=== PATIENT | male | born 1970 | race Caucasian/White ===

== ENCOUNTER 2017-10-25 16:00 | Emergency (ER) | payer BC ==
[2017-10-25] MEDS ORDERED: predniSONE 20 MG Tab PO ONE (16:54)
[2017-10-25] MEDS ORDERED: Indomethacin 25 MG Cap PO ONE (16:54)
[2017-10-25] MEDS ORDERED: Acetaminophen/oxyCODONE 325-5 MG Tab PO ONE (16:56)
--- NOTE | 2017-10-25 16:57 | EDM.PDOC ---
ED HPI GENERAL MEDICAL PROBLEM - General Chief Complaint: Lower Extremity Injury/Pain Stated Complaint: SLIPPED OFF STEP BOTH ANKLE HURT Time Seen by Provider: 10/25/17 16:53 Source of Information: Reports: Patient History Limitations: Reports: No Limitations - History of Present Illness INITIAL COMMENTS - FREE TEXT/NARRATIVE: 47-year-old male presents to the ED with bilateral severe ankle pain. He states his ankles been somewhat painful over the last 2-3 days. This morning he slipped while taking out the garbage and landed kind of hard on his ankles. Since that 10 the pain has increased 10 fold compared to what it was. He has no known other injuries to his ankles. He has no other pain. He has no fever or chills. No past history of gout. No previous fractures in his ankles. He is at the point now where he's got a shuffling gait with pain with every step. 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 (He took some Motrin a couple of days ago 1 dose and he thinks may have helped a little bit) Bilateral Ankle Pain Score (Numeric/FACES): 9 - Related Data Allergies Allergy/AdvReac Type Severity Reaction Status Date / Time No Known Allergies Allergy Verified 10/25/17 16:53 Home Meds: Home Meds Diclofenac Sodium [Voltaren] 50 mg PO TID #30 tab.ec 10/25/17 [Rx] oxyCODONE HCl/Acetaminophen [Percocet 5-325 mg Tablet] 1 - 2 each PO Q4H PRN # 12 tablet 10/25/17 [Rx] predniSONE [Deltasone] 20 mg PO BID #12 tablet 10/25/17 [Rx] Past Medical History Endocrine/Metabolic History: Reports: Obesity/BMI 30+ Social & Family History - Living Situation & Occupation Living situation: Reports: Occupation: Employed Review of Systems - Review of Systems Review Of Systems: See Below Constitutional: Reports: No Symptoms Eyes: Reports: No Symptoms Ears: Reports: No Symptoms Nose: Reports: No Symptoms Mouth/Throat: Reports: No Symptoms Respiratory: Reports: No Symptoms Cardiovascular: Reports: No Symptoms GI/Abdominal: Reports: No Symptoms Genitourinary: Reports: No Symptoms Musculoskeletal: Reports: Other (Bilateral severe ankle pain at the time of) Skin: Reports: No Symptoms ( evaluation.) Neurological: Reports: No Symptoms Psychiatric: Reports: No Symptoms ED EXAM, GENERAL - Physical Exam Exam: See Below Exam Limited By: No Limitations General Appearance: Alert, WD/WN, Mild Distress Respiratory/Chest: No Respiratory Distress, Lungs Clear, Normal Breath Sounds Cardiovascular: Normal Peripheral Pulses, Regular Rate, Rhythm, No Edema, No Gallop, No Murmur Peripheral Pulses: 3+: Posterior Tibial (L), Posterior Tibial (R), Dorsalis Pedis (L), Dorsalis Pedis (R) GI/Abdominal: Normal Bowel Sounds, Soft, Non-Tender, No Organomegaly, Other ( Abdominal girth limits ability to palpate solid organs) Back Exam: Normal Inspection, Full Range of Motion. No: CVA Tenderness (L), CVA Tenderness (R) Extremities: Other (Examination was limited to his ankles and feet. Both feet feel quite warm to palpation. He does have pain on firm compression in the metatarsal joints and ankle joints. Most of the pain however is in the true ankle joint bilaterally. Is increased warmth in both joints. Pain with rotation of either joint.) Neurological: Alert, Oriented, CN II-XII Intact, Normal Cognition Psychiatric: Normal Affect Skin Exam: Warm, Dry, Intact, Normal Color, No Rash Course - Vital Signs Last Recorded V/S: Last Vital Signs Temp 37.0 C 10/25/17 16:25 Pulse 83 10/25/17 16:25 Resp 16 10/25/17 16:25 BP 149/110 H 10/25/17 16:25 Pulse Ox 99 10/25/17 16:25 - Orders/Labs/Meds Orders: Active Orders 24 hr Category Date Time Status Peripheral IV Care [RC] . DIRECTED Care 10/25/17 17:00 Active Colchicine [Colcrys] Med 10/25/17 16:53 Active 0.6 mg PO Q1H Ketorolac [Toradol] Med 10/25/17 17:15 Active 30 mg IVPUSH ONETIME Sodium Chloride 0.9% [Saline Flush] Med 10/25/17 17:00 Active 10 ml FLUSH ASDIRECTED PRN Peripheral IV Insertion Adult [OM.PC] Stat Oth 10/25/17 17:00 Ordered Medication Orders Colchicine (Colcrys) 0.6 mg PO Q1H VITALIY Last Admin: 10/25/17 17:28 Dose: 0.6 mg Ketorolac Tromethamine (Toradol) 30 mg IVPUSH ONETIME VITALIY Last Admin: 10/25/17 17:30 Dose: 30 mg Sodium Chloride (Saline Flush) 10 ml FLUSH ASDIRECTED PRN PRN Reason: Keep Vein Open Last Admin: 10/25/17 17:34 Dose: 10 ml Labs: Laboratory Tests 10/25/17 10/25/17 Range/Units 17:10 17:10 WBC 7.35 (4.23-9.07) K/mm3 RBC 5.41 (4.63-6.08) M/mm3 Hgb 15.4 (13.7-17.5) gm/L Hct 45.2 (40.1-51.0) % MCV 83.5 (79.0-92.2) fl MCH 28.5 (25.7-32.2) pg MCHC 34.1 (32.2-35.5) g/dl RDW Std Deviation 41.6 (35.1-43.9) fL Plt Count 307 (163-337) K/mm3 MPV 9.5 (9.4-12.3) fl Neutrophils % (Manual) 68 H (40-60) % Band Neutrophils % 1 (0-10) % Lymphocytes % (Manual) 22 (20-40) % Atypical Lymphs % 0 % Monocytes % (Manual) 6 (2-10) % Eosinophils % (Manual) 1 (0.8-7.0) % Basophils % (Manual) 2 H (0.2-1.2) Platelet Estimate Adequate Plt Morphology Comment Normal RBC Morph Comment Normal Sodium 141 (136-145) mEq/L Potassium 3.6 (3.5-5.1) mEq/L Chloride 105 (98-107) mEq/L Carbon Dioxide 27 (21-32) mEq/L Anion Gap 12.6 (5-15) BUN 11 (7-18) mg/dL Creatinine 1.1 (0.7-1.3) mg/dL Est Cr Clr Drug Dosing 101.36 mL/min Estimated GFR (MDRD) > 60 (>60) mL/min BUN/Creatinine Ratio 10.0 L (14-18) Glucose 92 (74-106) mg/dL Uric Acid 5.8 (3.5-7.2) mg/dL Calcium 8.7 (8.5-10.1) mg/dL Total Bilirubin 0.7 (0.2-1.0) mg/dL AST 21 (15-37) U/L ALT 34 (16-63) U/L Alkaline Phosphatase 70 (46-116) U/L C-Reactive Protein < 0.2 (<1.0) mg/dL Total Protein 7.6 (6.4-8.2) g/dl Albumin 4.1 (3.4-5.0) g/dl Globulin 3.5 gm/dL Albumin/Globulin Ratio 1.2 (1-2) Meds: Medications Generic Name Dose Route Start Last Admin Trade Name Freq PRN Reason Stop Dose Admin Colchicine 0.6 mg 10/25/17 16:53 10/25/17 17:28 Colcrys PO 0.6 mg Q1H VITALIY Administration Ketorolac Tromethamine 30 mg 10/25/17 17:15 10/25/17 17:30 Toradol IVPUSH 30 mg ONETIME VITALIY Administration Sodium Chloride 10 ml 10/25/17 17:00 10/25/17 17:34 Saline Flush FLUSH 10 ml ASDIRECTED PRN Administration Keep Vein Open Discontinued Medications Generic Name Dose Route Start Last Admin Trade Name Freq PRN Reason Stop Dose Admin Indomethacin 50 mg 10/25/17 16:54 10/25/17 17:30 Indocin PO 10/25/17 16:55 Not Given ONETIME ONE Oxycodone/Acetaminophen 2 tab 10/25/17 16:56 10/25/17 17:28 Percocet 325-5 Mg PO 10/25/17 16:57 2 tab ONETIME ONE Administration Prednisone 30 mg 10/25/17 16:54 10/25/17 17:28 Prednisone PO 10/25/17 16:55 30 mg ONETIME ONE Administration - Radiology Interpretation Free Text/Narrative:: 47-year-old male presents to the ED with bilateral increasing pain in his ankle joints and feet for the last 3 days. States initially the pain was intermittent. However after this morning when he slipped a bit and came down on his ankles were taken out the garbage the pain has increased 10 fold. He can barely walk at this point in time. He has no other previous injuries to his ankles. History of gout. Patient is currently on no medications. He did take some Motrin a few days ago which helped minimally. Examination reveals inflammation in both feet in the true tarsal bones as well as the ankle joint bilaterally. Clinically has acute bilateral gout. Plan saline lock. Toradol 30 mg IV. Labs will be done to include a uric acid and a CRP. Given prednisone 30 mg orally. Given Percocet 5/325 mg tablets 2 orally and colchicine 0.6 mg orally and also be repeated every hour for 3 consecutive hours. - Re-Assessments/Exams Free Text/Narrative Re-Assessment/Exam: 10/25/17 18:08 Labs are back. They reveal a normal white count at 7.35 with 60% neutrophils 1% band cells reported. Hemoglobin is 15.4 with hematocrit of 45.2. Platelet count is normal 307,000. Sodium is 141 the remainder of the electrolytes are normal. And a gap is 12.6. BUN is 11 with a creatinine of 1.1. GFR is greater than 60. Glucose is 92. Calcium was 8.7. Liver function normal. C -reactive protein less than 0.2. The uric acid is pending 10/25/17 18:24 uric acid level is 5.8 within normal limits. However often it with acute gout attack it does lower in the serum and therefore was not necessary fpredict gout activity. Patient will be discharged home to take his third dose of collapse is seen in an hour. Take Percocet 5/325 mg tablets one or 2 every 4-6 hours needed for pain relief for the next day or so. 10 tablets were provided . I will start him on Voltaren 50 mg 3 times daily for the next 10 days. Prednisone 20 mg twice daily for the next 5 days. Breakfast and supper Departure - Departure Time of Disposition: 18:25 Disposition: Home, Self-Care 01 Condition: Fair Clinical Impression: Acute gouty arthritis - Discharge Information *PRESCRIPTION DRUG MONITORING PROGRAM REVIEWED*: Not Applicable *COPY OF PRESCRIPTION DRUG MONITORING REPORT IN PATIENT KEENA: Not Applicable Prescriptions: Diclofenac Sodium [Voltaren] 50 mg PO TID #30 tab.ec oxyCODONE HCl/Acetaminophen [Percocet 5-325 mg Tablet] 1 - 2 each PO Q4H PRN # 12 tablet PRN Reason: pain relief. predniSONE [Deltasone] 20 mg PO BID #12 tablet Instructions: Low-Purine Eating Plan, Gout, [id number] Referrals: PCP,None [Primary Care Provider] - Forms: ED Department Discharge, ED Return to Work/School Form Additional Instructions: Evaluation the emergency room today in regards to gradually worsening pain in both ankles over the last 3 days. Very severe today today to the point that she could barely walk. No injury to either ankle that would create a bony injury. Streaky and examination are compatible with acute gouty arthritis developing in the tarsal joints and the true ankle joint and both legs. Lab tests revealed your uric acid level which is the culprit in terms of causing gout is upper limits of normal at this time. High-fiber I would suggest having a uric acid level checked next time you're in to see your doctor for routine checkup. Treatment was started in the ED with colchicine tablet 0.6 mg 1 every hour for 3 consecutive hours you have received 2 doses. The third dose would be due at 7: 30 tonight. He will need to start prednisone 20 mg twice daily with breakfast and supper tomorrow morning. Is to be used for 6 days. Voltaren 50 mg 3 times daily for the next 10 days. The first tablet to be taken before bed tonight with a little food. Pain medication is Percocet 5/325 mg tabs one or 2 every 4- 6 hours needed for pain relief. I suspect she will need this medicine for the next day or 2 and once the inflammation is coming under control pain will be markedly improved. He should anticipate about 70% improvement by tomorrow at this time and 9% the following day the next day nearly completely back to normal. Suggest off work tomorrow to allow you inflammation to settle down in your ankles. Return to medical care if you are not markedly improved in 72 hours time - My Orders Last 24 Hours: My Active Orders 10/25/17 16:53 Colchicine [Colcrys] 0.6 mg PO Q1H 10/25/17 17:00 Peripheral IV Care [RC] . DIRECTED Sodium Chloride 0.9% [Saline Flush] 10 ml FLUSH ASDIRECTED PRN Peripheral IV Insertion Adult [OM.PC] Stat 10/25/17 17:15 Ketorolac [Toradol] 30 mg IVPUSH ONETIME - Assessment/Plan Last 24 Hours: My Active Orders 10/25/17 16:53 Colchicine [Colcrys] 0.6 mg PO Q1H 10/25/17 17:00 Peripheral IV Care [RC] . DIRECTED Sodium Chloride 0.9% [Saline Flush] 10 ml FLUSH ASDIRECTED PRN Peripheral IV Insertion Adult [OM.PC] Stat 10/25/17 17:15 Ketorolac [Toradol] 30 mg IVPUSH ONETIME
[2017-10-25] MEDS ORDERED: Sodium Chloride 0.9% 10 ML Syringe FLUSH PRN (17:00)
[2017-10-25] MEDS ORDERED: Ketorolac 30 MG/ML SDV IVPUSH SCH (17:15)
[2017-10-25] MEDS: Colchicine 0.6 MG Tab PO SCH ×3 (17:28→18:41)
== END 2017-10-25 18:50 | disposition home or self-care (01) ==
LOC: JD.ED 16:00
DX: M10.9 Gout, unspecified (principal)
CPT/HCPCS: 36415; 80053; 84550; 85007; 85027; 86140; 96374; 99284; A9270; J1885; J7050

== ENCOUNTER 2017-11-11 12:30 | Emergency (ER) | payer BC ==
[2017-11-11] MEDS ORDERED: Albuterol 0.083% 2.5 MG/3 ML Neb Soln NEB ONE (12:59)
[2017-11-11] MEDS ORDERED: Acetaminophen/HYDROcodone 325-5 MG Tab PO ONE (12:59)
--- NOTE | 2017-11-11 13:03 | EDM.PDOC ---
ED HPI GENERAL MEDICAL PROBLEM - General Chief Complaint: Respiratory Problem Stated Complaint: COUGH AND CONGESTION AND SOB Time Seen by Provider: 11/11/17 12:49 Source of Information: Reports: Patient History Limitations: Reports: No Limitations - History of Present Illness INITIAL COMMENTS - FREE TEXT/NARRATIVE: Patient is a 47-year-old male who presents ED complaining of 2 day history of off, congestion, bodyaches, and fatigue. States yesterday he was coughing quite a bit. Had some clear mucus with intermittent faint blood present. He's had quite a bit of sinus congestion with postnasal drip. With coughing he has increasing pain to his back that radiates around to the front of his chest. Pain is improved with lying still. He is mildly short of breath with exertion at times. There is no nausea vomiting. There has been no documented fever. No anterior chest discomfort. No diaphoresis. No nausea or vomiting. No abdominal pain. 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 He has been expressing runny nose with some intermittent mild sore throat. He has no significant past medical history. Currently taking no medications. He does not smoke. Middle Back Pain Score (Numeric/FACES): 10 - Related Data Allergies Allergy/AdvReac Type Severity Reaction Status Date / Time No Known Allergies Allergy Verified 10/25/17 16:53 Home Meds: Home Meds Acetaminophen/HYDROcodone [Crestone 325-5 MG] 1 tab PO Q6H PRN #12 tablet 11/11/17 [Rx] Albuterol [Proventil HFA] 1 - 2 puff INH Q4H PRN #1 inhaler 11/11/17 [Rx] Past Medical History - Past Health History Medical/Surgical History: Denies Medical/Surgical History Musculoskeletal History: Reports: Gout Endocrine/Metabolic History: Reports: Obesity/BMI 30+ - Past Surgical History HEENT Surgical History: Reports: Oral Surgery Social & Family History - Tobacco Use Smoking Status *Q: Never Smoker - Caffeine Use Caffeine Use: Reports: Soda, Tea - Recreational Drug Use Recreational Drug Use: No - Living Situation & Occupation Living situation: Reports: Occupation: Employed ED ROS GENERAL - Review of Systems Review Of Systems: See Below Constitutional: Reports: Decreased Appetite. Denies: Fever, Chills HEENT: Reports: Rhinitis, Sinus Problem, Throat Pain. Denies: Ear Discharge, Ear Pain, Throat Swelling Respiratory: Reports: Shortness of Breath, Wheezing, Pleuritic Chest Pain, Cough , Sputum. Denies: Hemoptysis Cardiovascular: Reports: No Symptoms GI/Abdominal: Reports: No Symptoms Musculoskeletal: Reports: Muscle Pain (generalized) Skin: Reports: No Symptoms Neurological: Reports: No Symptoms Psychiatric: Reports: No Symptoms ED EXAM, GENERAL - Physical Exam Exam: See Below Exam Limited By: No Limitations General Appearance: Alert, WD/WN, Mild Distress Eye Exam: Bilateral Eye: Normal Inspection Ears: Normal External Exam, Hearing Grossly Normal Nose: Normal Inspection, Nasal Swelling, Nasal Drainage, Clear Rhinorrhea Throat/Mouth: Normal Voice, No Airway Compromise, Other (Mild erythema to the posterior pharynx. Postnasal drip noted. No exudates or tonsillar swelling.) Neck: Normal Inspection, Supple, Non-Tender, Full Range of Motion Respiratory/Chest: No Respiratory Distress, Lungs Clear, Normal Breath Sounds, No Accessory Muscle Use, Other (Tenderness to the lower rib cage bilaterally increased with palpation and taking a deep breath. Intermittent coughing with deep inspiration.) Cardiovascular: Normal Peripheral Pulses, Regular Rate, Rhythm, No Murmur Peripheral Pulses: 2+: Radial (R) GI/Abdominal: Normal Bowel Sounds, Soft, Non-Tender, No Organomegaly, No Distention Back Exam: Normal Inspection Neurological: Alert, Oriented, CN II-XII Intact, Normal Cognition, No Motor/ Sensory Deficits Psychiatric: Normal Affect, Normal Mood Skin Exam: Warm, Dry, Intact, Normal Color Course - Vital Signs Last Recorded V/S: Last Vital Signs Temp 97.5 F 11/11/17 12:42 Pulse 117 H 11/11/17 12:42 Resp 20 11/11/17 12:42 BP 146/100 H 11/11/17 12:42 Pulse Ox 96 11/11/17 12:59 - Orders/Labs/Meds Orders: Active Orders 24 hr Category Date Time Status RT Aerosol Therapy [RC] ASDIRECTED Care 11/11/17 12:59 Active MYCOPLASMA PNEUMONIAE IGM AB [CHEM] Stat Lab 11/11/17 14:57 Ordered Labs: Laboratory Tests 11/11/17 11/11/17 Range/Units 13:21 13:21 WBC 18.44 H (4.23-9.07) K/mm3 RBC 5.62 (4.63-6.08) M/mm3 Hgb 15.9 (13.7-17.5) gm/L Hct 46.7 (40.1-51.0) % MCV 83.1 (79.0-92.2) fl MCH 28.3 (25.7-32.2) pg MCHC 34.0 (32.2-35.5) g/dl RDW Std Deviation 41.1 (35.1-43.9) fL Plt Count 279 (163-337) K/mm3 MPV 9.4 (9.4-12.3) fl Neutrophils % (Manual) 87 H (40-60) % Band Neutrophils % 1 (0-10) % Lymphocytes % (Manual) 8 L (20-40) % Atypical Lymphs % 0 % Monocytes % (Manual) 4 (2-10) % Eosinophils % (Manual) 0 L (0.8-7.0) % Basophils % (Manual) 0 L (0.2-1.2) Platelet Estimate Adequate RBC Morph Comment Normal Sodium 134 L (136-145) mEq/L Potassium 4.0 (3.5-5.1) mEq/L Chloride 103 (98-107) mEq/L Carbon Dioxide 22 (21-32) mEq/L Anion Gap 13.0 (5-15) BUN 14 (7-18) mg/dL Creatinine 1.1 (0.7-1.3) mg/dL Est Cr Clr Drug Dosing 101.36 mL/min Estimated GFR (MDRD) > 60 (>60) mL/min BUN/Creatinine Ratio 12.7 L (14-18) Glucose 109 H (74-106) mg/dL Calcium 8.8 (8.5-10.1) mg/dL Total Bilirubin 0.9 (0.2-1.0) mg/dL AST 16 (15-37) U/L ALT 33 (16-63) U/L Alkaline Phosphatase 72 (46-116) U/L C-Reactive Protein 2.5 H* (<1.0) mg/dL Total Protein 7.7 (6.4-8.2) g/dl Albumin 4.3 (3.4-5.0) g/dl Globulin 3.4 gm/dL Albumin/Globulin Ratio 1.3 (1-2) Meds: Medications Discontinued Medications Generic Name Dose Route Start Last Admin Trade Name Freq PRN Reason Stop Dose Admin Hydrocodone Bitart/Acetaminophen 1 tab 11/11/17 12:59 11/11/17 13:10 Crestone 325-5 Mg PO 11/11/17 13:00 1 tab ONETIME ONE Administration Albuterol 2.5 mg 11/11/17 12:59 11/11/17 13:29 Proventil Neb Soln NEB 11/11/17 13:00 2.5 mg ONETIME ONE Administration - Re-Assessments/Exams Free Text/Narrative Re-Assessment/Exam: On Auscultation lungs are clear with poor inspiratory effort secondary to increasing pain to his lower rib cage bilaterally deep inspiration. He does have a cough associated with this. He's been placed and body aches, sinus congestion, runny nose, mild sore throat. Have ordered Crestone one tab by mouth deloculated discomfort and also help with cough. Albuterol neb treatment 2.5 mg 1. Initial labs and studies include: CBC, chem 14, CRP, influenza, and chest x-ray two-view. Labs reviewed: White blood cell count 18.44, hemoglobin 15.9, platelet count 279 , neutrophil percentage is 87, no bandemia. Sodium 134, potassium 4.0, AG 13.0, cr 1.1. Glucose 109. CRP 2.5. Influenza screen was negative. CXR: Motion artifact on the lateral view. Within this limitation, nothing acute is appreciated on two-view chest x-ray. Reassessment, patient states the cough and discomfort have drastically improved with the above therapies. I believe the elevated white blood count is more likely a stress response from coughing. He has no left shift noted. CRP is only mildly elevated. I believe this is more likely a viral infection. Due to the coughing he is straining some intercostal muscles. Treatment will be symptomatic care including albuterol inhaler, Flonase, Claritin, nasal saline spray, and Crestone for pain. Follow-up with his PCP this coming week for reevaluation. Return to the ED if he develops any new or worsening symptoms.The patient remained hemodynamically stable while under my care in the E.D. I discussed the concerning symptoms for which to returnto the E.D. with the patient/family. The patient/family verbalized understanding. All questions were answered. Departure - Departure Time of Disposition: 14:55 Disposition: Home, Self-Care 01 Condition: Good Clinical Impression: Viral upper respiratory tract infection with cough, Acute chest wall pain - Discharge Information Prescriptions: Acetaminophen/HYDROcodone [Crestone 325-5 MG] 1 tab PO Q6H PRN #12 tablet PRN Reason: Pain (Severe 7-10) Albuterol [Proventil HFA] 1 - 2 puff INH Q4H PRN #1 inhaler PRN Reason: Dyspnea Instructions: Shortness of Breath, Adult, Gclx-or-Nyze, Chest Wall Pain, Easy- to-Read, Viral Illness, Adult, Viral Respiratory Infection Referrals: PCP,None [Primary Care Provider] - Forms: ED Department Discharge, ED Return to Work/School Form Additional Instructions: Take the inhaler as needed for shortness of breath. For mild to moderate pain utilize Tylenol and ibuprofen. For severe pain take Crestone one tab every [address] taking the Crestone. Do not drive today since receiving a sedative medication while in the ED. The Crestone will also help with her cough. Do not take Tylenol and Crestone together. Utilize Flonase 1 spray to each nares twice a day, Claritin 10 mg every day, and nasal saline spray every hour as needed throughout the course today. Refrain from any activities that cause worsening discomfort. Please return back to the ED if you develop fevers, worsening shortness of breath, or any additional new or worsening symptoms. - My Orders Last 24 Hours: My Active Orders 11/11/17 12:59 RT Aerosol Therapy [RC] ASDIRECTED 11/11/17 14:57 MYCOPLASMA PNEUMONIAE IGM AB [CHEM] Stat - Assessment/Plan Last 24 Hours: My Active Orders 11/11/17 12:59 RT Aerosol Therapy [RC] ASDIRECTED 11/11/17 14:57 MYCOPLASMA PNEUMONIAE IGM AB [CHEM] Stat
--- NOTE | 2017-11-11 14:27 | CR ---
Chest: 2 views of the chest were obtained. Comparison: No previous study. Heart size and mediastinum are normal. Lungs are clear. Bony structures are grossly intact. Impression: 1. Motion artifact on the lateral view. Within this limitation, nothing acute is appreciated on 2 view chest x-ray. Diagnostic code #2
== END 2017-11-11 15:05 | disposition home or self-care (01) ==
LOC: JD.ED 12:30
DX: J06.9 Acute upper respiratory infection, unspecified (principal); R07.89 Other chest pain
CPT/HCPCS: 36415; 71046; 80053; 85007; 85027; 86140; 86738; 87804; 94640; 99285; A9270; 99284

== ENCOUNTER 2019-10-17 09:57 | Emergency (ER) | payer BC ==
[2019-10-17] MEDS ORDERED: Sodium Chloride 0.9% 10 ML Syringe FLUSH PRN ×2 (10:34→11:55)
[2019-10-17] MEDS ORDERED: Ondansetron 4 MG/2 ML SDV IVPUSH ONE (10:34)
[2019-10-17] MEDS ORDERED: Sodium Chloride 0.9% 1,000 ML IV SCH (10:45)
--- NOTE | 2019-10-17 10:56 | EDM.PDOC ---
ED HPI GENERAL MEDICAL PROBLEM - General Chief Complaint: Headache Stated Complaint: HEADACHE/DIZZY Time Seen by Provider: 10/17/19 10:27 Source of Information: Reports: Patient History Limitations: Reports: No Limitations - History of Present Illness INITIAL COMMENTS - FREE TEXT/NARRATIVE: The patient presents with a headache and dizziness. This all started on Sunday with dizziness. The dizziness has progressed where the room is spinning and he has to hold on the wall to walk back to his room. He has a sight headache that started yesterday. He has no fever, chills, cough, congestion, runny nose, chest pain, shortness of breath, abdominal pain, numbness or weakness. He has some nausea at times. This has never happened to him before. Onset: Gradual Duration: Day(s): Location: Reports: Head Quality: Reports: Ache Severity: Mild Improves with: Reports: None Worsens with: Reports: None Associated Symptoms: Reports: Headaches, Nausea/Vomiting. Denies: Chest Pain, Cough, Fever/Chills, Shortness of Breath Headache Pain Score (Numeric/FACES): 4 - Related Data Allergies Allergy/AdvReac Type Severity Reaction Status Date / Time No Known Allergies Allergy Verified 10/17/19 10:28 Home Meds: Home Meds . [No Known Home Meds] 10/17/19 [History] Past Medical History - Past Health History Medical/Surgical History: Denies Medical/Surgical History Cardiovascular History: Reports: None Respiratory History: Reports: Sleep Apnea Gastrointestinal History: Reports: None Genitourinary History: Reports: None Musculoskeletal History: Reports: Gout Neurological History: Reports: Headaches, Chronic Psychiatric History: Reports: None Endocrine/Metabolic History: Reports: Obesity/BMI 30+ Hematologic History: Reports: None Immunologic History: Reports: None Oncologic (Cancer) History: Reports: None Dermatologic History: Reports: None - Infectious Disease History Infectious Disease History: Reports: None - Past Surgical History HEENT Surgical History: Reports: Oral Surgery Social & Family History - Tobacco Use Smoking Status *Q: Never Smoker - Caffeine Use Caffeine Use: Reports: Coffee, Soda, Tea - Recreational Drug Use Recreational Drug Use: No - Living Situation & Occupation Living situation: Reports: Occupation: Employed ED ROS GENERAL - Review of Systems Review Of Systems: See Below Constitutional: Reports: No Symptoms HEENT: Reports: No Symptoms Respiratory: Reports: No Symptoms Cardiovascular: Reports: No Symptoms Endocrine: Reports: No Symptoms GI/Abdominal: Reports: No Symptoms : Reports: No Symptoms Musculoskeletal: Reports: No Symptoms Skin: Reports: No Symptoms Neurological: Reports: Dizziness, Headache. Denies: Numbness, Weakness - Physical Exam Exam: See Below Exam Limited By: No Limitations General Appearance: Alert, No Apparent Distress Eye Exam: Left Eye: Nystagmus, Bilateral Eye: EOMI Ears: Normal External Exam Nose: Normal Inspection Head Exam: Atraumatic, Normocephalic Neck: Normal Inspection Respiratory/Chest: No Respiratory Distress, Lungs Clear, Normal Breath Sounds Cardiovascular: Regular Rate, Rhythm, No Edema, No Murmur GI/Abdominal: Soft, Non-Tender, No Organomegaly, No Mass Neuro Exam (Abbreviated): Alert, Oriented, No Motor/Sensory Deficits EKG INTERPRETATION EKG Date: 10/17/19 Time: 10:52 Rhythm: NSR Rate (Beats/Min): 66 [place]: Normal P-Wave: Present QRS: Normal ST-T: Normal QT: Normal Course - Vital Signs Last Recorded V/S: Last Vital Signs Temp 97.6 F 10/17/19 10:25 Pulse 72 10/17/19 10:25 Resp 18 10/17/19 10:25 BP 159/102 H 10/17/19 10:25 Pulse Ox 100 10/17/19 10:25 - Orders/Labs/Meds Orders: Active Orders 24 hr Category Date Time Status Cardiac Monitoring [RC] . DIRECTED Care 10/17/19 10:34 Active EKG Documentation Completion [RC] STAT Care 10/17/19 10:35 Active Peripheral IV Care [RC] . DIRECTED Care 10/17/19 10:35 Active Sodium Chloride 0.9% [Normal Saline] 1,000 ml Med 10/17/19 10:45 Active IV .BOLUS Sodium Chloride 0.9% [Normal Saline] 100 ml Med 10/17/19 12:00 Active IV ASDIRECTED Sodium Chloride 0.9% [Saline Flush] Med 10/17/19 10:34 Active 10 ml FLUSH ASDIRECTED PRN Sodium Chloride 0.9% [Saline Flush] Med 10/17/19 11:55 Active 10 ml FLUSH ONETIME PRN ED Antiemetic Medication Reflex [OM.PC] Stat Oth 10/17/19 10:35 Ordered Peripheral IV Insertion Adult [OM.PC] Stat Oth 10/17/19 10:34 Ordered Medication Orders Sodium Chloride (Normal Saline) 1,000 mls @ 1,000 mls/hr IV .BOLUS VITALIY Last Admin: 10/17/19 10:55 Dose: 1,000 mls/hr Documented by: ISABEL Sodium Chloride (Normal Saline) 100 mls @ 75 mls/hr IV ASDIRECTED VITALIY Last Admin: 10/17/19 12:34 Dose: 75 mls/hr Documented by: MARYAM Sodium Chloride (Saline Flush) 10 ml FLUSH ASDIRECTED PRN PRN Reason: Keep Vein Open Last Admin: 10/17/19 10:57 Dose: 10 ml Documented by: ISABEL Sodium Chloride (Saline Flush) 10 ml FLUSH ONETIME PRN PRN Reason: IV FLUSH Last Admin: 10/17/19 12:34 Dose: 10 ml Documented by: MARYAM Labs: Laboratory Tests 10/17/19 10/17/19 Range/Units 10:43 10:43 WBC 6.92 (4.23-9.07) K/mm3 RBC 5.24 (4.63-6.08) M/mm3 Hgb 15.2 (13.7-17.5) gm/dl Hct 44.3 (40.1-51.0) % MCV 84.5 (79.0-92.2) fl MCH 29.0 (25.7-32.2) pg MCHC 34.3 (32.2-35.5) g/dl RDW Std Deviation 41.5 (35.1-43.9) fL Plt Count 301 (163-337) K/mm3 MPV 9.1 L (9.4-12.3) fl Neut % (Auto) 70.3 H (34.0-67.9) % Lymph % (Auto) 19.4 L (21.8-53.1) % [place] % (Auto) 7.7 (5.3-12.2) % Eos % (Auto) 1.6 (0.8-7.0) Baso % (Auto) 0.7 (0.1-1.2) % Neut # (Auto) 4.87 (1.78-5.38) K/mm3 Lymph # (Auto) 1.34 (1.32-3.57) K/mm3 [place] # (Auto) 0.53 (0.30-0.82) K/mm3 Eos # (Auto) 0.11 (0.04-0.54) K/mm3 Baso # (Auto) 0.05 (0.01-0.08) K/mm3 Sodium 138 (136-145) mEq/L Potassium 4.3 (3.5-5.1) mEq/L Chloride 102 (98-107) mEq/L Carbon Dioxide 28 (21-32) mEq/L Anion Gap 12.3 (5-15) BUN 9 (7-18) mg/dL Creatinine 1.0 (0.7-1.3) mg/dL Est Cr Clr Drug Dosing 109.15 mL/min Estimated GFR (MDRD) > 60 (>60) mL/min BUN/Creatinine Ratio 9.0 L (14-18) Glucose 112 H (74-106) mg/dL Calcium 8.7 (8.5-10.1) mg/dL Total Bilirubin 0.8 (0.2-1.0) mg/dL AST 36 (15-37) U/L ALT 77 H (16-63) U/L Alkaline Phosphatase 68 (46-116) U/L Troponin I < 0.017 (0.00-0.056) ng/mL Total Protein 7.5 (6.4-8.2) g/dl Albumin 3.8 (3.4-5.0) g/dl Globulin 3.7 gm/dL Albumin/Globulin Ratio 1.0 (1-2) Meds: Medications Generic Name Dose Route Start Last Admin Trade Name Freq PRN Reason Stop Dose Admin Sodium Chloride 1,000 mls @ 1,000 mls/hr 10/17/19 10:45 10/17/19 10:55 Normal Saline IV 1,000 mls/hr .BOLUS VITALIY Administration Sodium Chloride 100 mls @ 75 mls/hr 10/17/19 12:00 10/17/19 12:34 Normal Saline IV 75 mls/hr ASDIRECTED VITALIY Administration Sodium Chloride 10 ml 10/17/19 10:34 10/17/19 10:57 Saline Flush FLUSH 10 ml ASDIRECTED PRN Administration Keep Vein Open Sodium Chloride 10 ml 10/17/19 11:55 10/17/19 12:34 Saline Flush FLUSH 10 ml ONETIME PRN Administration IV FLUSH Discontinued Medications Generic Name Dose Route Start Last Admin Trade Name Starr PRN Reason Stop Dose Admin Iopamidol 100 ml 10/17/19 11:55 10/17/19 12:34 Isovue-[id number] (76%) IVPUSH 10/17/19 11:56 100 ml ONETIME ONE Administration Ketorolac Tromethamine 30 mg 10/17/19 11:41 10/17/19 11:50 Toradol IVPUSH 10/17/19 11:42 30 mg ONETIME ONE Administration Meclizine HCl 25 mg 10/17/19 10:36 10/17/19 10:56 Antivert PO 10/17/19 10:37 25 mg ONETIME ONE Administration Ondansetron HCl 4 mg 10/17/19 10:34 10/17/19 10:55 Zofran IVPUSH 10/17/19 10:35 4 mg ONETIME ONE Administration - Re-Assessments/Exams Free Text/Narrative Re-Assessment/Exam: 10/17/19 12:18 I ordered an IV NS 1L bolus, zofran 4mg IV, ativan 25mg PO, EKG, CT of head and labs. His EKG shows a NSR with no acute changes. The CT of his head shows nothing acute. His CBC looks good. His ALT is elevated at 77. His troponin is negative. He does not feel any better. I will give him some toradol 30mg IV for his headache and I have ordered a CTA of his head. 10/17/19 14:23 The CTA looks good. I called our rehab department and one of our physical therapists Bridger came to see him and did the eply maneuver and gave him some exercises. He will see him in the outpatient clinic. I will discharge him home. Departure - Departure Time of Disposition: 14:30 Disposition: Home, Self-Care 01 Condition: Good Clinical Impression: Vertigo - Discharge Information *PRESCRIPTION DRUG MONITORING PROGRAM REVIEWED*: Not Applicable *COPY OF PRESCRIPTION DRUG MONITORING REPORT IN PATIENT KEENA: Not Applicable Referrals: Mindi Cortez NP [Primary Care Provider] - Forms: ED Department Discharge Additional Instructions: Do the exercises given to you. Follow with physical therapy next week. Please return if you are worse. Sepsis Event Note (ED) - Evaluation Sepsis Screening Result: No Definite Risk - Focused Exam Vital Signs: Vital Signs Temp Pulse Resp BP Pulse Ox 10/17/19 10:25 97.6 F 72 18 159/102 H 100 - My Orders Last 24 Hours: My Active Orders 10/17/19 10:34 Cardiac Monitoring [RC] . DIRECTED Sodium Chloride 0.9% [Saline Flush] 10 ml FLUSH ASDIRECTED PRN Peripheral IV Insertion Adult [OM.PC] Stat 10/17/19 10:35 EKG Documentation Completion [RC] STAT Peripheral IV Care [RC] . DIRECTED ED Antiemetic Medication Reflex [OM.PC] Stat 10/17/19 10:45 Sodium Chloride 0.9% [Normal Saline] 1,000 ml IV .BOLUS 10/17/19 11:55 Sodium Chloride 0.9% [Saline Flush] 10 ml FLUSH ONETIME PRN 10/17/19 12:00 Sodium Chloride 0.9% [Normal Saline] 100 ml IV ASDIRECTED - Assessment/Plan Last 24 Hours: My Active Orders 10/17/19 10:34 Cardiac Monitoring [RC] . DIRECTED Sodium Chloride 0.9% [Saline Flush] 10 ml FLUSH ASDIRECTED PRN Peripheral IV Insertion Adult [OM.PC] Stat 10/17/19 10:35 EKG Documentation Completion [RC] STAT Peripheral IV Care [RC] . DIRECTED ED Antiemetic Medication Reflex [OM.PC] Stat 10/17/19 10:45 Sodium Chloride 0.9% [Normal Saline] 1,000 ml IV .BOLUS 10/17/19 11:55 Sodium Chloride 0.9% [Saline Flush] 10 ml FLUSH ONETIME PRN 10/17/19 12:00 Sodium Chloride 0.9% [Normal Saline] 100 ml IV ASDIRECTED
--- NOTE | 2019-10-17 11:06 | CT ---
Head CT Technique: Multiple axial sections through the brain were obtained. Intravenous contrast was not utilized. Comparison: No prior intracranial imaging is available. Findings: Ventricles along with basal cisterns and sulci over the convexities are within normal limits for the patient's age. No abnormal parenchymal densities are seen. No evidence of intracranial hemorrhage. No midline shift or mass-effect is seen. Bone window settings were reviewed. Visualized paranasal sinuses and mastoid sinuses show nothing acute. No acute calvarial finding is appreciated. Impression: 1. Nothing acute is appreciated on noncontrast head CT exam. Diagnostic code #1 This report was dictated in MDT
[2019-10-17] MEDS ORDERED: Ketorolac 30 MG/ML SDV IVPUSH ONE (11:41)
[2019-10-17] MEDS ORDERED: Iopamidol 755 Mg/ML 100 ML Bottle IVPUSH ONE (11:55)
[2019-10-17] MEDS ORDERED: Sodium Chloride 0.9% 100 ML IV SCH (12:00)
--- NOTE | 2019-10-17 12:46 | CT ---
CT angiogram of the brain Technique: Multiple axial sections through the brain were obtained. Intravenous contrast was utilized. Study performed during the arterial phase of contrast administration with multiple MIP images obtained. Findings: Both distal vertebral arteries are patent into the basilar artery. Basilar artery is patent into both posterior cerebral arteries. Carotid siphon is patent into the middle and anterior cerebral arteries. No focal stenosis is seen. No occlusion is identified. No discrete aneurysm is appreciated. Impression: 1. No abnormality is appreciated on CT angiogram of the brain. Diagnostic code #1 This report was dictated in MDT
== END 2019-10-17 15:01 | disposition home or self-care (01) ==
LOC: JD.ED 09:57
DX: R42 Dizziness and giddiness (principal); E66.9 Obesity, unspecified; Z68.41 Body mass index [BMI] 40.0-44.9, adult
CPT/HCPCS: 36415; 70450; 70496; 80053; 84484; 85025; 93005; 96361; 96374; 96375; 99284; A9270; J1885; J2405; J7030; J7050; Q9967; 93010; 99283